=== PATIENT | female | born 1970 | race Caucasian/White ===

== ENCOUNTER 2017-10-26 13:57 | Emergency (ER) | payer MEDICAID, OTHER ==
[2017-10-26 17:54] LABS: ADD MAN DIFF? NO
[2017-10-26 17:58] LABS: BASOPHILS % 0.5 % (0.0-2.0); EOSINOPHILS # 0.1 10^3/ul (0.0-0.5); EOSINOPHILS % 1.5 % (0.0-7.0); HEMATOCRIT 35.2 % (37.0-47.0); HEMOGLOBIN 11.1 g/dl (12.0-16.0); LYMPHOCYTES # 2.6 10^3/ul (0.8-2.9); LYMPHOCYTES % 31.5 % (15.0-51.0); MEAN CORPUSCULAR HEMOGLOBIN 27.3 pg (29.0-33.0); MEAN CORPUSCULAR HGB CONC 31.5 g/dl (32.0-37.0); MEAN CORPUSCULAR VOLUME 86.5 fl (82.0-101.0); MEAN PLATELET VOLUME 9.3 fl (7.4-10.4); MONOCYTE # 0.6 10^3/ul (0.3-0.9); MONOCYTES % 7.3 % (0.0-11.0); NEUTROPHIL # 4.8 10^3/ul (1.6-7.5); PLATELET COUNT 357 10^3/UL (140-415); RED BLOOD COUNT 4.07 10^6/ul (4.20-5.40); RED CELL DISTRIBUTION WIDTH 15.2 % (11.5-14.5)
[2017-10-26 17:58] LABS: WHITE BLOOD COUNT 8.1 10^3/ul (4.8-10.8)
[2017-10-26 18:17] LABS: ANION GAP 15 (8-16); BLOOD UREA NITROGEN 9 mg/dl (7-20); CALCIUM 9.1 mg/dl (8.4-10.2); CARBON DIOXIDE 28 mmol/L (21-31); CHLORIDE 99 mmol/L (97-110); CREATININE 0.61 mg/dl (0.44-1.00); GLUCOSE 218 mg/dl (70-220); POTASSIUM 4.5 mmol/L (3.5-5.1); SODIUM 137 mmol/L (135-144)
[2017-10-26 18:29] LABS: TROPONIN-I < 0.010 ng/ml (0.000-0.120)
== END 2017-10-26 19:09 | disposition home or self-care (01) ==
LOC: E/R 13:57
DX: R07.89 Other chest pain (principal)
CPT/HCPCS: 36415; 71045; 80048; 81025; 84484; 85025; 93005; 99285-25

== ENCOUNTER 2018-10-29 13:33 | Emergency (ER) | payer OTHER, MEDICAID ==
[2018-10-29] MEDS: DEXAMETHASONE 10 MG/ML 1 ML INJ IM (15:13)
[2018-10-29] MEDS: HYDROCODONE/APAP (5/325) TAB PO (15:13)
== END 2018-10-29 17:42 | disposition home or self-care (01) ==
LOC: FTE 17:42
DX: M54.41 Lumbago with sciatica, right side (principal); I10 Essential (primary) hypertension
CPT/HCPCS: 72100; 96372; 99284-25

== ENCOUNTER 2018-12-12 15:24 | Emergency (ER) | payer OTHER ==
[2018-12-12] MEDS: KETOROLAC 30 MG INJ IM (19:08)
== END 2018-12-12 20:13 | disposition home or self-care (01) ==
LOC: FTE 15:24
DX: M54.42 Lumbago with sciatica, left side (principal); I10 Essential (primary) hypertension
CPT/HCPCS: 81025; 96372; 99284-25